=== PATIENT | male | born 1985 | race African-American/Black ===

== ENCOUNTER 2025-06-09 21:51 | Emergency (ER) | payer OTHER, SELFPAY ==
--- NOTE | ~2025-06-09 | CT_ITS ---
EXAMINATION: CT abdomen pelvis w con DATE: 06/10/2025 01:12 INDICATION: Left lower quadrant abdominal pain TECHNIQUE: Computed tomography (CT) of the abdomen and pelvis was performed with 100 mL Omnipaque-350 intravenous contrast. Automated exposure control and iterative reconstruction technique were employed. The dose-length product was 876.25 mGy-cm. COMPARISON: None FINDINGS: Mild discoid atelectasis in the left lower lobe. Heart size is normal. No pericardial or pleural effusion. Postoperative change of prior sleeve gastrectomy with suture line along the greater curvature of the stomach. Cholecystectomy clips the gallbladder fossa. Liver, spleen, pancreas, bilateral adrenal glands and kidneys are normal. There are small bowel anastomotic suture lines in the left or right upper abdomen. No bowel obstruction. Normal appendix. Bladder is normal. No free intraperitoneal gas or fluid. No pathologically enlarged abdominal or pelvic lymphadenopathy. Midline abdominal wall surgical scar. Mild thoracic spondylosis. Transitional thoracolumbar and lumbosacral segments. IMPRESSION: 1. Chronic postoperative changes in the abdomen. No acute intra-abdominal/pelvic process. Reviewed, dictated and finalized at location A. IMPRESSION: 1. Chronic postoperative changes in the abdomen. No acute intra-abdominal/pelvi c process.
[2025-06-09 21:59] VITALS: BP 131/86; PULSE 72; RESP 18; TEMP 36.2; O2SAT 98
[2025-06-10 00:26] VITALS: BP 134/94; PULSE 60; RESP 12; O2SAT 100
[2025-06-10 00:38] LABS: Hematocrit 47.8 % (42.0-52.0); Hemoglobin 15.6 g/dL (14.0-18.0); Immature Granulocyte Percent A 0.3 % (0-0.5); Lymphocytes Absolute Auto 2.15 K/mm3 (0.9-3.2); Mean Corpuscular HGB Conc 32.6 g/dl (32-36); Mean Corpuscular Hemoglobin 30.1 pg (26-34); Mean Corpuscular Volume 92.3 fl (80-100); Nucleated Red Blood Cells Absolute Auto 0.000 K/mm3 (0.0-0.012); Nucleated Red Blood Cells Perc 0.0 % (0.0-0.2); Platelet Count Result 189 k/mm3 (150-375); Red Blood Count 5.18 M/mm3 (4.6-6.20); White Blood Count 7.4 K/mm3 (4.5-10.0)
--- NOTE | 2025-06-10 00:41 | ED.ABDPAIN ---
HPI - Abdominal Pain General Chief Complaint: Nausea/Vomiting/Diarrhea <Macie Travis APRN - Last Filed: 06/10/25 03:14> Stated Complaint: flu like symptoms, n/v, blood in stool <Macie Travis APRN - Last Filed: 06/10/25 03:14> Time Seen by Provider: 06/10/25 00:13 <Macie Travis APRN - Last Filed: 06/10/25 03:14> History of Present Illness HPI narrative: Patient is a 39-year-old male who presents to them ER with complaints of coughing and congestion along with nausea, vomiting, diarrhea, and abdominal pain. He reports the coughing and congestion started yesterday, but today he started experiencing GI symptoms. Patient reports he has a history of multiple abdominal surgeries, including colon resection due to diverticulitis, hernia repairs, esophageal ulcers, cholecystectomy, and bariatric surgery. He denies any recent fevers, urinary symptoms, shortness of breath, or wheezing. Patient denies alcohol and/or drug use. <Macie Travis APRN - Last Filed: 06/10/25 03:14> Related Data Allergies/Adverse Reactions: Allergies Allergy/AdvReac Type Severity Reaction Status Date / Time amoxicillin Allergy Mild Rash Verified 06/10/25 01:39 <Macie Travis APRN - Last Filed: 06/10/25 03:14> Review of Systems Review of Systems: All systems reviewed & are unremarkable except as noted in HPI and below <Macie Travis APRN - Last Filed: 06/10/25 03:14> Exam Narrative: GENERAL: Well appearing, well-nourished, non-toxic, in no acute distress. HEAD: Normocephalic, atraumatic. NECK: Supple. No adenopathy, no masses. RESPIRATORY: Airway patent, respirations nonlabored. Clear to auscultation bilaterally, no rales, rhonchi, wheezing. CARDIOVASCULAR: Regular rate and rhythm without murmurs, rubs, or gallops. Peripheral pulses 2+ and equal bilaterally. ABDOMINAL: Soft, tender LLQ, nondistended, no hepatosplenomegaly. Normoactive BS. MUSCULOSKELETAL: Moves all extremities. Strength/ROM intact without gross deformities. SKIN: Warm, dry, normal color. No rashes. NEURO: A&O X3. Speech clear. Cranial nerves II-XII intact. No ataxic movements. PSYCHIATRIC: Appropriate mood and affect. Normal interaction. <Macie Travis APRN - Last Filed: 06/10/25 03:14> Course SUPERVISOR PUBLICATION[employer]ODUCTION/PA Physician Supervision This visit was performed by both a physician and an APC. For this patient encounter, I reviewed the SUPERVISOR PUBLICATION[employer] PRODUCTION or PA documentation, treatment plan, and medical decision making and had [id number] time with this patient. I performed all aspects of the MDM as documented. <Miguel Vogel MD - Last Filed: 06/10/25 03:31> Vital Signs Vital signs: Vital Signs Temperature 97.2 F L 06/09/25 21:59 Pulse Rate 72 06/09/25 21:59 Respiratory Rate 18 06/09/25 21:59 Blood Pressure 131/86 06/09/25 21:59 Pulse Oximetry 98 06/09/25 21:59 Temperature 97.2 F L 06/09/25 21:59 Pulse Rate 72 06/10/25 01:40 Respiratory Rate 16 06/10/25 01:40 Blood Pressure 133/91 H 06/10/25 01:40 Pulse Oximetry 100 06/10/25 01:40 <Macie Travis APRN - Last Filed: 06/10/25 03:14> Vital Signs Temperature 97.2 F L 06/09/25 21:59 Pulse Rate 72 06/09/25 21:59 Respiratory Rate 18 06/09/25 21:59 Blood Pressure 131/86 06/09/25 21:59 Pulse Oximetry 98 06/09/25 21:59 Temperature 97.2 F L 06/09/25 21:59 Pulse Rate 72 06/10/25 01:40 Respiratory Rate 16 06/10/25 01:40 Blood Pressure 133/91 H 06/10/25 01:40 Pulse Oximetry 100 06/10/25 01:40 <Miguel Vogel MD - Last Filed: 06/10/25 03:31> MDM - Abdominal Pain MDM Narrative Medical decision making narrative: Patient is a 39-year-old male who presents to them ER with complaints of coughing and congestion along with nausea, vomiting, diarrhea, and abdominal pain. He reports the coughing and congestion started yesterday, but today he started experiencing GI symptoms. Patient reports he has a history of multiple abdominal surgeries, including colon resection due to diverticulitis, hernia repairs, esophageal ulcers, cholecystectomy, and bariatric surgery. He denies any recent fevers, urinary symptoms, shortness of breath, or wheezing. Patient denies alcohol and/or drug use. Labs Ordered: Imaging Ordered: CBC, CMP, PTT, INR, lipase, COVID/flu/RSV, magnesium Medications Ordered: 1 L normal saline IV bolus, morphine 4 mg IV, Zofran 4 mg IV Results: Patient's CBC and CMP indicated no acute abnormalities. His respiratory cells with negative for influenza, RSV, and COVID. Patient's lipase was 46. 0300- Care signed out to Dr. Vogel pending CT scan results. <Macie Travis, MOLDED PARTS INSPECTOR - Last Filed: 06/10/25 03:14> Patient is a 39-year-old male who presents to them ER with complaints of coughing and congestion along with nausea, vomiting, diarrhea, and abdominal pain. He reports the coughing and congestion started yesterday, but today he started experiencing GI symptoms. Patient reports he has a history of multiple abdominal surgeries, including colon resection due to diverticulitis, hernia repairs, esophageal ulcers, cholecystectomy, and bariatric surgery. He denies any recent fevers, urinary symptoms, shortness of breath, or wheezing. Patient denies alcohol and/or drug use. Labs Ordered: Imaging Ordered: CBC, CMP, PTT, INR, lipase, COVID/flu/RSV, magnesium Medications Ordered: 1 L normal saline IV bolus, morphine 4 mg IV, Zofran 4 mg IV Results: Patient's CBC and CMP indicated no acute abnormalities. His respiratory cells with negative for influenza, RSV, and COVID. Patient's lipase was 46. 0300- Care signed out to Dr. Vogel pending CT scan results. Patient was signed out to me pending CT abdomen pelvis with IV contrast. CT was obtained and independently interpreted by me revealing no acute process. Patient was instructed to follow up with his primary care physician within the next 3-5 days and return to the ED if any new or worsening symptoms develop. Was provided with GI referral regarding the bloody stools and instructed to call tomorrow to set up a follow-up appointment. Discharged home in stable condition. <Miguel Vogel MD - Last Filed: 06/10/25 03:31> Differential Diagnosis Differential diagnosis: Likely abdominal pain, acute appendicitis, gastroenteritis, small bowel obstruction and other (Pulmonary embolism, alcohol withdrawal, fatty liver) <Macie Travis APRN - Last Filed: 06/10/25 03:14> Lab Data Attestation: I reviewed the patient's lab results. <Macie Travis APRN - Last Filed: 06/10/25 03:14> Result diagrams: 06/10/25 00:33 06/10/25 00:33 <Macie Travis APRN - Last Filed: 06/10/25 03:14> Labs: Lab Results 06/10/25 06/10/25 Range/Units 00:33 00:48 WBC 7.4 (4.5-10.0) K/mm3 RBC 5.18 (4.6-6.20) M/mm3 Hgb 15.6 (14.0-18.0) g/dL Hct 47.8 (42.0-52.0) % MCV 92.3 (80-100) fl MCH 30.1 (26-34) pg MCHC 32.6 (32-36) g/dl RDW 13.4 (11.5-14.5) % Plt Count 189 (150-375) k/mm3 MPV 10.1 (7.4-10.4) fl Immature Gran % (Auto) 0.3 (0-0.5) % Neut % (Auto) 62.0 (45.5-73.1) % Lymph % (Auto) 29.0 (18.3-44.2) % [place] % (Auto) 7.8 (2.6-8.5) % Eos % (Auto) 0.4 (0-4.4) % Baso % (Auto) 0.5 (0.2-1.2) % Lymph # (Auto) 2.15 (0.9-3.2) K/mm3 [place] # (Auto) 0.6 (0.1-0.6) K/mm3 Eos # (Auto) 0.0 (0-0.3) K/mm3 Baso # (Auto) 0.0 (0.0-0.1) K/mm3 Abs Immat Gran (auto) 0.02 (0.00-0.031) K/mm3 Absolute Neuts (auto) 4.6 (1.3-6.7) K/mm3 Absolute Nucleated RBC 0.000 (0.0-0.012) K/mm3 Nucleated RBC % 0.0 (0.0-0.2) % PT 13.1 (11.1-14.7) Seconds INR 1.0 APTT 26.9 (22.3-36.8) Seconds Sodium 137 (137-145) mmol/L Potassium 4.1 (3.4-5.0) mmol/L Chloride 103 (98-107) mmol/L Carbon Dioxide 28 (22-30) mmol/L Anion Gap 6 (4-12) mmol/L BUN 12 (9-20) mg/dL Creatinine 1.06 (0.7-1.3) mg/dL Estim Creat Clear Calc 85 ml/min Estimated GFR > 60 (59 - ) Glucose 95 (65-110) mg/dL Calcium 9.1 (8.4-10.2) mg/dL Magnesium 2.0 (1.6-2.3) mg/dL Total Bilirubin 0.8 (0.2-1.3) mg/dL AST 27 (17-59) U/L ALT 10 (6-50) U/L Alkaline Phosphatase 72 (38-126) U/L Total Protein 7.6 (6.3-8.2) g/dL Albumin 4.3 (3.5-5.1) g/dL Lipase 46 (23-300) U/L Influenza A (RT-PCR) Negative (Negative) Influenza B (RT-PCR) Negative (Negative) RSV (RT-PCR) Negative (Negative) SARS-CoV-2 RNA (RT-PCR) Negative (Negative) <Macie Travis, MOLDED PARTS INSPECTOR - Last Filed: 06/10/25 03:14> Lab Results 06/10/25 06/10/25 Range/Units 00:33 00:48 WBC 7.4 (4.5-10.0) K/mm3 RBC 5.18 (4.6-6.20) M/mm3 Hgb 15.6 (14.0-18.0) g/dL Hct 47.8 (42.0-52.0) % MCV 92.3 (80-100) fl MCH 30.1 (26-34) pg MCHC 32.6 (32-36) g/dl RDW 13.4 (11.5-14.5) % Plt Count 189 (150-375) k/mm3 MPV 10.1 (7.4-10.4) fl Immature Gran % (Auto) 0.3 (0-0.5) % Neut % (Auto) 62.0 (45.5-73.1) % Lymph % (Auto) 29.0 (18.3-44.2) % [place] % (Auto) 7.8 (2.6-8.5) % Eos % (Auto) 0.4 (0-4.4) % Baso % (Auto) 0.5 (0.2-1.2) % Lymph # (Auto) 2.15 (0.9-3.2) K/mm3 [place] # (Auto) 0.6 (0.1-0.6) K/mm3 Eos # (Auto) 0.0 (0-0.3) K/mm3 Baso # (Auto) 0.0 (0.0-0.1) K/mm3 Abs Immat Gran (auto) 0.02 (0.00-0.031) K/mm3 Absolute Neuts (auto) 4.6 (1.3-6.7) K/mm3 Absolute Nucleated RBC 0.000 (0.0-0.012) K/mm3 Nucleated RBC % 0.0 (0.0-0.2) % PT 13.1 (11.1-14.7) Seconds INR 1.0 APTT 26.9 (22.3-36.8) Seconds Sodium 137 (137-145) mmol/L Potassium 4.1 (3.4-5.0) mmol/L Chloride 103 (98-107) mmol/L Carbon Dioxide 28 (22-30) mmol/L Anion Gap 6 (4-12) mmol/L BUN 12 (9-20) mg/dL Creatinine 1.06 (0.7-1.3) mg/dL Estim Creat Clear Calc 85 ml/min Estimated GFR > 60 (59 - ) Glucose 95 (65-110) mg/dL Calcium 9.1 (8.4-10.2) mg/dL Magnesium 2.0 (1.6-2.3) mg/dL Total Bilirubin 0.8 (0.2-1.3) mg/dL AST 27 (17-59) U/L ALT 10 (6-50) U/L Alkaline Phosphatase 72 (38-126) U/L Total Protein 7.6 (6.3-8.2) g/dL Albumin 4.3 (3.5-5.1) g/dL Lipase 46 (23-300) U/L Influenza A (RT-PCR) Negative (Negative) Influenza B (RT-PCR) Negative (Negative) RSV (RT-PCR) Negative (Negative) SARS-CoV-2 RNA (RT-PCR) Negative (Negative) <Miguel Vogel MD - Last Filed: 06/10/25 03:31> Discharge Plan Discharge Clinical Impression: Nausea & vomiting <Macie Travis APRN - Last Filed: 06/10/25 03:14> Patient Disposition: Home <Macie Travis APRN - Last Filed: 06/10/25 03:14> Condition: Improved <Macie Travis APRN - Last Filed: 06/10/25 03:14> Instructions: Antibiotic Form, Acute Nausea and Vomiting (ED) <Macie Travis APRN - Last Filed: 06/10/25 03:14> Additional Instructions: Please follow-up with your family doctor within the next 3-5 days. Her in the emergency department if any new or worsening symptoms develop. Your provided with a GI referral instructed to call to set up a follow-up appointment regarding her bloody stools. <Macie Travis APRN - Last Filed: 06/10/25 03:14> Patient Language: Japanese <Macie Travis APRN - Last Filed: 06/10/25 03:14> Follow-up/Referrals: PHYSICIAN,PATROL AGENT [Primary Care Provider, Internal Medicine] Charan Haley MD [Physician, Gastroenterology] - 3 Days <Macie Travis APRN - Last Filed: 06/10/25 03:14> Time of Disposition: 03:27 <Macie Travis APRN - Last Filed: 06/10/25 03:14> 03:27 <Miguel Vogel MD - Last Filed: 06/10/25 03:31>
--- OUTSIDE RECORDS SUMMARY | 2025-06-10 00:47 | XMS_ITS | Clinical Summary ---
Author Organization [facility] Address [address] [place] [address] Care Team Providers Care [employer]ck[employer] Name Role Phone Anali Hermosillo PA-C Primary Care Provider [phone] Source Comments [facility],non-owned Affiliates and Associated Physician Practices is amultiple site organization consisting of ambulatory clinics and hospital sitesin [place], [place], [place] and [place]. This disclosure is being madepursuant to the Care Everywhere program and may not contain all information available regarding this patient. Last updated 18.[facility] [employer] Allergies Active Allergy Reactions Criticality Noted Date Comments Amoxicillin Rash Medium 11/27/2012 Metronidazole Rash Medium 09/26/2017 Medications * Be aware that medications may not be up to date on this document. Alwaysverify current medications with the patient. No known medications Active Problems Problem Noted Date Diagnosed Date Wound dehiscence 10/12/2018 Infertility male Azoospermia Family History Medical History Relation Name Comments Hypertension Mother Relation Name Status Comments Mother Social History Tobacco Use Types Packs/Day Years Used Date Smoking Tobacco: Never Smokeless Tobacco: Never Tobacco Cessation:Counseling Given: Yes Alcohol Use Standard Drinks/Week Comments No 0 (1 standard drink = 0.6 oz pur e alcohol) Sex and Gender Information Value Date Recorded Sex Assigned at Not on file Legal Sex Male 6:51 PM CHAIR INSPECTOR AND LEVELER Gender Identity Not on file Sexual Orientation Not on file Last Filed Vital Signs Vital Sign Reading Time Taken Comments Blood Pressure 124/76 09/05/2020 10:38 AM CHAIR INSPECTOR AND LEVELER Pulse 77 09/05/2020 10:38 AM CHAIR INSPECTOR AND LEVELER Temperature 36.3 C (97.3 F) 09/05/2020 10:38 AM CHAIR INSPECTOR AND LEVELER Respiratory Rate 18 08/28/2020 1:15 PM CHAIR INSPECTOR AND LEVELER Oxygen Saturation 100% 09/05/2020 10:38 AM CHAIR INSPECTOR AND LEVELER Inhaled Oxygen Concentration - - Weight 131 kg (288 lb 12.8 oz) 08/28/2020 8:55 A M CHAIR INSPECTOR AND LEVELER Height 162.6 cm (5' 4) 09/05/2020 10:38 AM CHAIR INSPECTOR AND LEVELER Body Mass Index 49.57 08/28/2020 8:55 AM CHAIR INSPECTOR AND LEVELER Plan of Treatment Health Maintenance Due Date Last Done Comments LIPID TESTING 1985 DTAP/TDAP/TD VACCINES (1 - Tdap) 2003 HEPATITIS B VACCINE (1 of 3 - 19+ 3-dose series) 2003 HPV VACCINE (1 - 3-dose SCDM series) 2011 DEPRESSION SCREENING 10/06/2024 COVID-19 VACCINE (1 - 2023-2 5 season) 2025 INFLUENZA VACCINE (#1) 2025 ZOSTER VACCINE (1 of 2) 2034 HEPATITIS C SCREENING Completed 04/28/2019 HIV SCREENING Completed 04/28/2019 HIB VACCINE Aged Out No longer eligi ble based on patient's age to complete this topic MENINGOCOCCAL (Group B) VACC INE SHARED DECISION-MAKING Aged Out No longer eligibl e based on patient's age to complete this topic MENINGOCOCCAL GROUPS A/C/Y/W VACCINE Aged Out No longer eligible b ased on patient's age to complete this topic PNEUMOCOCCAL VACCINE Aged Out No long er eligible based on patient's age to complete this topic Medical Devices Implanted Type Area Phlebotomist Supervisor/Instructor Device Identifier Shelf Expiration Date Model / Serial / Lot Plug Srg 1.3in [employer]a M[employer] Nabsb Prfx Implanted:Qty: 1 on 04/28/2019 by Danika Bennett MD at [facility] N/A: [employer] 12/31/2022 [id number] / / [id number] Procedures Procedure Name Priority Date/Time Associated Diagnosis Comments EXPOSURE PANEL SOURCE Routine 04/28/2019 6:10 PM CDT from Last 3 Months or Most Recently Relevant to Health Maintenance Results * EXPOSURE PANEL SOURCE (04/28/2019 6:10 PM CDT) HIV Antigen/Antibody 1 & 2 Non-react vanna Non-reac tive 04/28/2019 7:07 PM CDT [facility] Comment: Neither HIV-1 p24 Antigen nor HIV-1/HIV-2 Antibodies are detected. Hepatitis C Antibody Non-react vanna Non-reac tive 04/28/2019 7:07 PM CDT [facility] Comment: Hepatitis C Antibody screen indicates no serologic evidence of past or current infection with Hepatitis C Virus. Patients with unexplained liver disease who are immunocompromised or suspected of having acute Hepatitis C infection may benefit from Nucleic Acid Test ([facility]MAN) for Hepatitis C Viral RNA to confirm Hepatitis C status. Hepatitis B Virus Surface Antigen Non-react vanna Non-reac tive 04/28/2019 7:07 PM CDT [facility] Hepatitis B Core Virus Antibody IgM Non-react vanna Non-reac tive 04/28/2019 7:07 PM CDT [facility] Blood BLOOD SPECIMEN / Unknown Venipuncture / Unknown 04/28/2019 6:10 PM CDT 04/28/2019 6:22 PM CDT us Gurdeep France MD LAB - CHEMISTRY ORDERABLES Final Result Performing Organization Address [facility]/State/ZIP Co de Phone Number [facility] [address] [place] [address] from Last 3 Months or Most Recently Relevant to Health Maintenance Insurance [facility] * Guarantor: KEREN KELLEY Account Type Relation to Patient Date of Phone Billing Address Personal/Family 1985 Advance Directives * Full Code (Latest Code Status on File) Date Activated Date Inactivated Comments 04/28/2019 3:30 PM 04/29/2019 1:49 PM * Full Code Date Activated Date Inactivated Comments 10/13/2018 4:50 PM 10/19/2018 3:44 PM Care Teams [employer] Relationship Specialty Start Date End Date Anali Hermosillo PA-C [address] [facility] [address] [place] [address] PCP - General Physician Emergency Medicine Nurse Practitioner 10/30/18
--- OUTSIDE RECORDS SUMMARY | 2025-06-10 00:48 | XMS_ITS | Clinical Summary ---
Author Organization [facility] Address [address] [place] [address] Care Team Providers Care English Language Arts Teacher Name Role Phone Des Jackson MD Primary Care Provider [phone] Imtiaz Oropeza MD Unavailable Steven Moon MD Unavailable [phone] Alec Toribio Unavailable [phone] Allergies Active Allergy Reactions Criticality Noted Date Comments Amoxicillin Rash Medium 09/26/2017 Metronidazole Rash Medium 09/26/2017 Medications metoprolol XL (TOPROL-XL) 25 mg extended release tablet Take 1 tablet (25 mg total) by mouth daily 90 tablet 1 4 Active ergocalciferol (VITAMIN D) 50,000 unit capsuleIndicatio ns:Vitamin D deficiency Take 1 capsule (50,000 Units total) by mouth once a week 12 capsule 1 4 Active traZODone (DESYREL) 50 mg tabletIndication s:Persistent disorder of initiating or maintaining sleep Take trazodone 50 mg 1 tablet 30 minutes prior to bedtime nightly 90 tablet [address] (PROTONIX) 40 mg EC tabletIndication s:Gastroesophage al reflux disease without esophagitis Take 1 tablet (40 mg total) by mouth 2 (two) times a day before breakfast and dinner 60 tablet 2 5 Active minocycline (MINOCIN,DYNACIN ) 100 mg capsule Take 1 capsule (100 mg total) by mouth 2 (two) times a day 60 capsule 3 5 Active clindamycin-zabrina oyl peroxide (BENZACLIN) gel Apply topically 2 (two) times a day 25 g 5 03/18/20 26 Active Active Problems Problem Noted Date Diagnosed Date Rash 03/18/2025 Acne vulgaris 03/18/2025 Assessment & Plan (03/18/2025 9:59 AM CDT): Treat with Retin-A and minocycline. Re-evaluate 1 month. Dermatology referral if not better Weight loss 01/10/2025 Sore throat 11/08/2024 Assessment & Plan (11/08/2024 1:25 PM ACCOUNT SERVICES ANALYST): Today COVID, influenza a/B and strep A negative. Will treat with Medrol Dosepak for symptomatic relief. Can continue throat lozenges and Tylenol as needed. Patient did not need sick leave. Ulcer of esophagus without bleeding 09/15/2024 Rectal bleeding 09/10/2024 Assessment & Plan (09/10/2024 10:51 AM ACCOUNT SERVICES ANALYST): Patient was recently admitted to the hospital August 2024 for incisional hernia repair. Had BRBPR while in the hospital. -Schedule colonoscopy -The risks (risks of bleeding, infection, perforation requiring surgery, missed polyps/cancer, dental injury, aspiration pneumonia, anesthesia complications such as drug reaction and cardiopulmonary complications including rare chance of ), benefits, and alternatives of the planned procedure were explained to the patient who understands and consents to having procedure done. Gastroesophageal reflux disease without esophagi tis 09/10/2024 Assessment & Plan (09/10/2024 10:51 AM ACCOUNT SERVICES ANALYST): Chronic GERD, takes Pepcid p.r.n.. -Start pantoprazole 40 mg p.o. daily -Continue Pepcid OTC p.r.n. -RECOMMENDATIONS given include: anti-reflux maneuvers, Avoid acidic foods like oranges and tomatoes., avoidance of spicy foods, avoid eating 3-4 hours before bed, elevation of the head of the bed, and weight loss Anemia 09/10/2024 Assessment & Plan (09/10/2024 10:53 AM ACCOUNT SERVICES ANALYST): Chronic, labs from August 2024 with a hemoglobin 10.8. -EGD and colonoscopy as above Recurrent incisional hernia with incarceration 1 History of anemia 04/28/2024 Assessment & Plan (04/28/2024 3:53 PM CDT): Hemoglobin stable. Continuing iron pill daily. Mixed hyperlipidemia 04/28/2024 Assessment & Plan (04/28/2024 3:56 PM CDT): Well controlled with lifestyle measures. Stress-induced cardiomyopathy 04/26/2024 Abdominal pain 01/02/2024 Assessment & Plan (09/10/2024 10:50 AM ACCOUNT SERVICES ANALYST): Patient has chronic abdominal pain and has had multiple abdominal surgeries. Patient was seen in the ER 05/2024 for abdominal pain, nausea, vomiting, and diarrhea. Work up was unremarkable including CT scan. -avoid NSAIDS -Start pantoprazole 40 mg p.o. daily -schedule EGD -The risks (risks of bleeding, infection, perforation requiring surgery, missed polyps/cancer, dental injury, aspiration pneumonia, anesthesia complications such as drug reaction and cardiopulmonary complications including rare chance of ), benefits, and alternatives of the planned procedure were explained to the patient who understands and consents to having procedure done. Assessment & Plan (04/30/2024 9:02 AM CDT): Symptoms resolved and no longer on Bentyl. Assessment & Plan (01/05/2024 11:42 AM CDT): Worsening of chronic abdominal pain. He has not been taking the Bentyl. They gave him some Pepcid. Bentyl did help previously. We will restart Bentyl. Also give him a note to return to work on January 06. Psychophysiologic insomnia 09/24/2023 Nausea and vomiting, unspecified vomiting type 0 02/25/2023 Palpitations 01/23/2023 Assessment & Plan (10/23/2023 1:00 PM ACCOUNT SERVICES ANALYST): Asymptomatic off medication. Assessment & Plan (04/18/2023 1:11 PM CDT): Without any sensation of palpitations or dizziness. We will recheck his pulse though because it was high when he 1st got here today. Pulse was retaken and is 86 and regular. Assessment & Plan (01/23/2023 3:12 PM CDT): The differential diagnosis is wide and of uncertain prognosis. This could be a metabolic cause and we should repeat CMP. He has known decreased ejection fraction and history of stress related cardiomyopathy. We should consider the possibility of atrial fibrillation and do EKG. It could be aggravated by anemia. This needs to be rechecked. Needs CBC also to exclude infectious cause. EKG shows sinus tachycardia rate of 148. Rate is never been less than 100 since he has been out of the hospital even at rest. Rate can go up to 200. Normal axis. Short WI interval 0.114. No ischemia. Recommend go to ER for admission. We called his trial mgr office. They advised to have him come in to see them tomorrow morning. Severe malnutrition 01/14/2023 Bacterial pneumonia 01/13/2023 Abscess of lower lobe of left lung with pneumoni a 01/12/2023 Assessment & Plan (02/03/2023 2:24 PM CDT): - Pt will complete last dose of meropenem which he has at home today, then stop IV abx, line may be removed. - Given allergy to Amoxicillin and metronidazole, will continue treatment with ciprofloxacin 500mg PO BID and clindamycin 300mg PO TID to complete 3 more weeks of treatment. - Repeat CT pt had 01/29/23 showed improvement. No need for additional CT scan given pt's reassuring presentation in clinic. - Would recommend that pt have repeat chest x-ray for monitoring in 6-8 weeks. - Pt should continue follow-up with other specialties as directed. - Discussed with patient the rational for treatment, culture results, risk of recurrent infection, signs/symptoms of recurrent infection, and to contact ID clinic with any questions or concerns. Assessment & Plan (01/16/2023 9:03 PM CDT): New LLL pulmonary abscess on CT Imaging of 01/12. Admitted to the ICU in shock and AHRF; improved and weaned of pressor-support and supplemental O2. On Meropenem. Recommendations - Bronchoscopy and/or percutaneous drainage are not indicated, and could cause harm in setting of lung abscess - Ambulatory O2 assessment within 24hours prior to discharge - Case discussed with ID team today. As the patient will be discharged on home IV meropenem managed by ID with subsequent re-evaluation in clinic in 3-4 weeks, the ID team will also obtain a repeat chest CT at same visit to follow the abscess. No scheduled pulmonology follow-up is needed, but please feel free to reach out with any questions. History of gastrectomy 01/02/2023 Small bowel perforation 01/02/2023 Assessment & Plan (01/02/2023 2:31 PM CDT): Recovering well. Hypertension, essential 01/02/2023 Assessment & Plan (04/28/2024 3:55 PM CDT): Continue metoprolol at same dosage. Well controlled. Assessment & Plan (01/02/2023 2:34 PM CDT): Continue medication at same dosage. Well controlled. Bariatric surgery status 01/01/2023 Assessment & Plan (01/02/2023 2:42 PM CDT): Was complicated by intestinal perforation but recovering well. Assessment & Plan (01/02/2023 2:32 PM CDT): Had small-bowel perforation as complication. Iron deficiency anemia due to chronic blood loss 01/01/2023 Assessment & Plan (01/02/2024 3:40 PM CDT): Hemoglobin now normal. May decrease iron to 1 pill a day. Assessment & Plan (10/24/2023 9:21 AM ACCOUNT SERVICES ANALYST): Continue iron same dosage but needs repeat labs. Will taper iron dosage if labs satisfactory. Assessment & Plan (04/17/2023 3:54 PM CDT): Continue iron same dosage but needs repeat labs. Assessment & Plan (01/02/2023 2:42 PM CDT): Start on iron b.i.d. and check labs 1-2 months Assessment & Plan (01/02/2023 2:32 PM CDT): Needs repeat labs. Hypoxemia 12/07/2022 Class 2 severe obesity due t o excess calories with serious comorbidity and body mass index (BMI) of 35.0 to 35.9 in adult 12/05/2022 Assessment & Plan (01/02/2024 3:42 PM CDT): BMI Follow-up includes: nutrition counseling and exercise counseling. Assessment & Plan (10/23/2023 1:01 PM ACCOUNT SERVICES ANALYST): BMI Follow-up includes: nutrition counseling and exercise counseling. Assessment & Plan (04/17/2023 3:56 PM CDT): BMI Follow-up includes: nutrition counseling and exercise counseling. Septic shock 10/25/2022 Overview (12/09/2022): Added automatically from request for surgery [id number] Vitamin D deficiency 10/09/2022 Assessment & Plan (04/28/2024 3:50 PM CDT): Continue vitamin-D weekly at same dosage. Well controlled. Assessment & Plan (01/02/2024 3:41 PM CDT): Continue vitamin-D weekly at same dosage. Well controlled. Assessment & Plan (10/24/2023 9:21 AM ACCOUNT SERVICES ANALYST): Has been off vitamin-D for awhile. restart vitamin-D and check level in few months Assessment & Plan (04/17/2023 3:54 PM CDT): Continue weekly vitamin-D same dosage. Needs repeat level Assessment & Plan (01/02/2023 2:33 PM CDT): Continue vitamin-D at same dosage. Well controlled. Needs repeat level Assessment & Plan (01/01/2023 8:01 AM CDT): Continue weekly vitamin-D at same dosage. Well controlled. Will need repeat level Assessment & Plan (10/11/2022 10:34 AM ACCOUNT SERVICES ANALYST): Recommend recheck vitamin-D level and probably needs to restart vitamin-D as was low normal when checked a few weeks ago Other irritable bowel syndrome 10/09/2022 Assessment & Plan (10/11/2022 10:27 AM ACCOUNT SERVICES ANALYST): Not an active problem and not taking Bentyl. Obstructive sleep apnea 04/09/2022 Persistent disorder of initiating or maintaining sleep 04/09/2022 No diagnosis on Scammon I 12/04/2021 ROSEN (dyspnea on exertion) 11/27/2021 Well adult exam 11/27/2021 Overview (05/05/2025): BMI Follow-up includes: nutrition counseling and exercise counseling. Elevated blood pressure read ing without diagnosis of hypertension 11/27/2021 Precordial pain 10/26/2021 Assessment & Plan (10/11/2022 10:32 AM ACCOUNT SERVICES ANALYST): No longer problem. Unremarkable cardiac workup. 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 Pain in both lower legs 12/15/2018 Muscle strain 12/15/2018 Wound dehiscence 10/12/2018 Resolved Problems Problem Noted Date Diagnosed Date Resolved Date Morbid obesity with BMI of 50.0-59.9, adult 12/04/2021 05/27/2022 BMI 45.0-49.9, adult 11/07/2021 022 Class 3 severe obesity due t o excess calories with serious comorbidity and body mass index (BMI) of 45.0 to 49.9 in adult 10/26/2021 3 Assessment & Plan (10/11/2022 10:27 AM ACCOUNT SERVICES ANALYST): BMI Follow-up includes: nutrition counseling and exercise counseling. Good candidate and satisfactory risk for bariatric surgery. Encounters Date Type Department Care Team Description 03/18/2025 9:45 AM CDT Office Visit [facility] [address] [place] [id number] Des Jackson MD Acne vulgaris (Primary Dx) 03/15/2025 Patient Self-Triage [facility] Health[facility]/ Physicians [address] [place] [id number] Mychart, Generic Provider from Last 3 Months Immunizations Immunization Administration Dates Next Due DTP 02/05/1989, 6,02/04/1985,11/18,1984 Hep A, Adult 12/19/2006 Hep B, Adolescent or Pediatric 01/12/2000,1999,09/08/1999 HiB 10/17/1986 Influenza, Quadrivalent, Spl it, Preservative Free, Intramuscular 08/01/2023,12/26/2022(Deferred: Patient Refused - now refusing vaccination after previously consenting) Influenza, Unspecified 11/08/2024(Deferr ed: Patient decision),2024(Deferred: Patient decision) MMR 12/08/1992,10/19/1985 OPV 02/05/1989, 6,02/04/1985,11/18,1984 Td, adsorbed 09/08/1999 Surgical History Surgery Date Site/Laterality Comments HERNIA REPAIR 2017, 2018 CHOLECYSTECTOMY 10/06/2017 - 10/05/2018 CT GUIDED DRAINAGE PERITONEA L OR RETROPERITONEAL FLUID COLLECTION 12/23/2015 N/A INGUINAL HERNIA REPAIR 10/06/2018 - 10/05/2019 Right w/ventral hernia rep. BOWEL RESECTION 10/06/2015 - 10/05/2016 BARIATRIC SURGERY 12/05/2022 ESOPHAGOGASTRODUODENOSCOPY COLONOSCOPY COLONOSCOPY W/ BIOPSIES 09/05/2024 - 10/05/2024 N/A Medical History Medical History Date Comments Diverticulitis 2016 Diverticulosis GERD (gastroesophageal reflux disease) Hypertension Sleep apnea Nausea and vomiting, unspecified vomiting type 0 02/25/2023 Esophageal ulcer with bleeding Family History Medical History Relation Name Comments No Known Problems Brother No Known Problems Daughter 1 No Known Problems Daughter 2 Obesity Father Arley kelley Hypertension Father's Sister Gail kelley Diabetes Maternal Grandfather Hypertension Maternal Grandfather Diabetes Maternal Grandmother Hypertension Maternal Grandmother Hypertension Mother No Known Problems Paternal Grandfather No Known Problems Paternal Grandmother Diabetes Sister 1 Delfina gonzales Diabetes Sister 2 No Known Problems Son Anesthesia problems Neg Hx Relation Name Status Comments Brother Alive Daughter 1 Alive Daughter 2 Alive Father Arley kelley Alive Father's Sister aGil kelley Maternal Grandfather Maternal Grandmother Mother Alive Paternal Grandfather Paternal Grandmother Sister 1 Delfina gonzales Alive Sister 2 Alive Son Alive Social History Tobacco Use Types Packs/Day Years Used Date Smoking Tobacco: Never Passive Smoke Exposure: Never Smokeless Tobacco: Never Tobacco Cessation:Counseling Given: Not Answered Alcohol Use Standard Drinks/Week Comments No 0 (1 standard drink = 0.6 oz pur e alcohol) OASIS D0700: Social Isolation Answer Da te Recorded Frequency of experiencing loneliness or isolatio n Never 02/24/2023 OASIS A1250: Transportation Answer Date Recorded Lack of Transportation (Medical) No 02/24/2023 Lack of Transportation (Non-Medical) No 02/24/2023 Patient Unable or Declines to Respond No 02/24/2023 OASIS B1300: Health Literacy Answer Johnnie e Recorded Frequency of needing help to read materials from doctor or pharmacy Never 02/24/2023 Social Connection and Isolation Panel Answer Date Recorded In a typical week, how many times do you talk on the phone with family, friends, or neighbors? More than three times a week 01/14/2023 How often do you get togethe r with friends or relatives? More than three times a week 01/14/2023 How often do you attend chur or quaker services? 1 to 4 times per year 01/14/2023 Do you belong to any clubs o r organizations such as quaker groups, unions, fraternal or athletic groups, or school groups? No 01/14/2023 How often do you attend meet ings of the clubs or organizations you belong to? Never 01/14/2023 Are you , , di vorced, , never , or living with a partner? 01/14/2023 AUDIT-C Answer Date Recorded Q1: How often do you have a drink containing alcohol? Never 03/18/2025 Q2: How many drinks containi ng alcohol do you have on a typical day when you are drinking? Patient does not drink Q3: How often do you have si x or more drinks on one occasion? Never 03/18/2025 Overall Financial Resource Strain (CARDIA) Answe r Date Recorded How hard is it for you to pa y for the very basics like food, housing, medical care, and heating? Not very hard 01/14/2023 PHQ-2 Answer Date Recorded PHQ-2 Total Score (If total score is 3 or more points, staff should administer the PHQ-9) 0 03/18/2025 Hunger Vital Sign Answer Date Recorded Within the past 12 months, y ou worried that your food would run out before you got the money to buy more. Never true 01/15/20 23 Within the past 12 months, t he food you bought just didn't last and you didn't have money to get more. Never true 01/14/2023 PRAPARE - Transportation Answer Date Re corded In the past 12 months, has l ack of transportation kept you from medical appointments or from getting medications? No 01/04 In the past 12 months, has l ack of transportation kept you from meetings, work, or from getting things needed for daily living? No 01/14/2023 Housing Stability Vital Sign Answer Johnnie e Recorded In the last 12 months, was t here a time when you were not able to pay the mortgage or rent on time? No 01/14/2023 In the last 12 months, how many places have you lived? 1 01/14/2023 In the last 12 months, was t here a time when you did not have a steady place to sleep or slept in a usp (including now)? No 01/14/2023 Personal Safety Answer Date Recorded Have you ever been in or are you currently in a harmful physical or emotional relationship or is someone making you feel afraid or unsafe? Denies 02/14/2025 Sex and Gender Information Value Date Recorded Sex Assigned at Not on file Legal Sex Male 6:02 AM ACCOUNT SERVICES ANALYST Gender Identity Male 09/11/2021 1:51 AM ACCOUNT SERVICES ANALYST Sexual Orientation Straight 09/11/2021 1: 52 AM ACCOUNT SERVICES ANALYST Obstetrics History Last Filed Vital Signs Vital Sign Reading Time Taken Comments Blood Pressure 118/82 03/18/2025 9:41 AM CDT Pulse 72 03/18/2025 9:41 AM CDT Temperature 36.8 C (98.2 F) 03/18/2025 9:41 AM CDT Respiratory Rate 18 03/18/2025 9:41 AM CDT Oxygen Saturation 99% 03/18/2025 9:41 AM CDT Inhaled Oxygen Concentration - - Weight 91.8 kg (202 lb 6.4 oz) 03/18/2025 9:41 A M CDT Height 162.6 cm (5' 4.02) 03/18/2025 9:41 AM CD T Body Mass Index 34.72 03/18/2025 9:41 AM CDT Plan of Treatment Health Maintenance Due Date Last Done Comments Hepatitis C Screening 1984 Prostate Cancer Screening-PSA 1984 DTaP/Tdap/Td Vaccine (6 - Tdap) 09/09/1999 09/08/1999, 02/05/1989, 02/09/1986, Additional history exists Regular Well Visit/Exam 18-64 2002 HPV Vaccines (1 - 3-dose SCDM series) 2011 Covid-19 Vaccine ( season) 2025 11/11/2021, 05/22/2021, 04/24/2021 Influenza Vaccine (#1) 2025 08/01/2023 Depression Screening 03/18/2026 03/18/2025, 11/08/2024, 04/30/2024, Additional history exists Hepatitis B Screening Completed 01/12/2000 , 10/20/1999, 09/08/1999 Pneumococcal vaccine <65 Aged Out No longer eligible based on patient's age to complete this topic Varicella Vaccines Discontinued Medical Devices Implanted Type Area General Office Dispatcher Device Identifier Shelf Expiration Date Model / Serial / Lot Carlota Connell/C Michell Bard [id number] Bard [id number] Monofilament Soft Lightweight Low Profile Square - [id number] - [id number] Implanted:Qty: 1 on 08/20/2024 by Codey Jo MD at [facility] Mesh N/A: Abdomen [employer]/C R Bard [id number] 12/31/2028 [id number] / [id number] / [id number] [employer] End[employer] Surgery Ligaclip Extra Ligate Open Medium Large Clip Internal Titanium Latex Free [id number] - [id number] Implanted:Qty: 1 on 12/05/2022 by Richi Moncada MD at [facility] N/A: Abdomen [employer] End[employer] Surgery 07/05/2027 [id number] / / [id number] [employer]umi[employer] Biological Bariatric Peristrip Non Crosslinked Bovine Pericardium For Endo Meredith Thin Valz94dstuil - [id number] Implanted:Qty: 6 on 12/05/2022 by Richi Moncada MD at [facility] N/A: Abdomen [employer] Anabel 04/16/2023 [id number] / / [id number] Insurance [facility] [place] [address] Advance Directives For more information, please contact: [phone] Documents on File Type Date Recorded Patient Vac Press Operator Expl anation ADVANCE DIRECTIVE 08/20/2024 6:58 AM Afia r of Loss Prevention Auditor-Medical ADVANCE DIRECTIVE 08/10/2024 5:01 PM image .jpg Power of Loss Prevention Auditor 08/10/2024 5:01 PM image .jpg * Full Code (Latest Code Status on File) Date Activated Date Inactivated Comments 08/20/2024 5:04 PM 08/26/2024 3:41 PM * Full Code Date Activated Date Inactivated Comments 02/25/2023 3:34 AM 02/28/2023 3:32 PM * Full Code Date Activated Date Inactivated Comments 01/13/2023 1:12 AM 01/20/2023 7:26 PM * Full Code Date Activated Date Inactivated Comments 12/05/2022 1:16 PM 12/26/2022 5:49 PM Healthcare Agents on File Name Relationship Healthcare Agent Relationship Communication Christal Foley Mother First Alternate Health Care Agent Lorenzo cashdorian Kelley Daughter Second Alternate Health Care Agent Care Teams English Language Arts Teacher Relationship Specialty Start Date End Date Des Jackson MD [address] [place] [address] PCP - General Family Practice 10/11/22 06/11/25 Imtiaz Oropeza MD [address] [place] [address] Consulting Physician Cardiovascular Disease 10/11/22 Steven Moon MD [address] [facility] [address] [place] [address] Surgeon Thoracic Surgery 01/13/23 Alec Toribio PA [address] [facility] [place] [address] Physician Plastic Bubble Packer Cardiothoracic Surgery 01/13/23
[2025-06-10 00:52] LABS: Alanine Aminotransferase 10 U/L (6-50); Albumin Level 4.3 g/dL (3.5-5.1); Alkaline Phosphatase 72 U/L (38-126); Anion Gap 6 mmol/L (4-12); Aspartate Amino Transferase 27 U/L (17-59); Bilirubin,Total 0.8 mg/dL (0.2-1.3); Blood Urea Nitrogen 12 mg/dL (9-20); Calcium 9.1 mg/dL (8.4-10.2); Carbon Dioxide 28 mmol/L (22-30); Chloride 103 mmol/L (98-107); Estimated CRCL calculation 85 ml/min; Estimated Glomerular Filt Rate > 60; Glucose 95 mg/dL (65-110); Magnesium 2.0 mg/dL (1.6-2.3); Potassium 4.1 mmol/L (3.4-5.0); Sodium 137 mmol/L (137-145); Total Protein 7.6 g/dL (6.3-8.2)
[2025-06-10 00:58] LABS: Lipase 46 U/L (23-300)
[2025-06-10 01:14] LABS: Influenza A QL RT-PCR Negative (Negative); Influenza B QL RT-PCR Negative (Negative); RSV RNA, RT-PCR Negative (Negative); SARS-CoV-2 RNA PCR Negative (Negative)
[2025-06-10 01:20] LABS: INR 1.0; Prothrombin Time 13.1 Seconds (11.1-14.7)
[2025-06-10 01:40] VITALS: BP 133/91; PULSE 72; RESP 16; O2SAT 100
[2025-06-10 01:40] LABS: Partial Thromboplastin Time 26.9 Seconds (22.3-36.8)
[2025-06-10] MEDS: SODIUM CHLORIDE 0.9% IV 1,000 ML 999 ML IV CONT (01:40)
[2025-06-10] MEDS: MORPHINE SULFATE (*CRX) 4 MG/ML INJ IV PUSH (01:55)
[2025-06-10] MEDS: ONDANSETRON INJ 4 MG/2 ML VIAL IV PUSH (01:56)
[2025-06-10 03:45] VITALS: BP 119/64; PULSE 62; RESP 17; O2SAT 100
== END 2025-06-10 03:47 | disposition home or self-care (01) ==
PROVIDERS: Registered Nurse; Emergency Provider Emergency Medicine
DX: R11.2 Nausea with vomiting, unspecified (principal); Z20.822 Contact with and (suspected) exposure to COVID-19
CPT/HCPCS: 36415; 74177; 80053; 83690; 83735; 85025; 85610; 85730; 87637; 96361; 96374; 96375; 99284; J2270; J2405; J7030; Q9967